=== PATIENT | male | born 1935 | race American Indian/Alaskan Native ===

== ENCOUNTER 2018-10-16 14:34 | Emergency (ER) | payer OTHER ==
[~2018-10-16] VITALS: Ht 167.6 cm; Wt 79.4 kg
[2018-10-16 15:07] LABS: BASOPHILS ABSOLUTE AUTO 0.04 K/mm3 (0.00-0.23); BASOPHILS PERCENT AUTO 1 % (0-2); EOSINOPHILS ABSOLUTE AUTO 0.52 K/mm3 (0.00-0.68); EOSINOPHILS PERCENT AUTO 6 % (0-6); Hemoglobin 9.9 g/dL (13.5-17.5); IMMATURE GRAN ABSOLUTE AUTO 0.04 K/mm3 (0.00-0.10); IMMATURE GRAN PERCENT AUTO 1 % (0-1); LYMPHOCYTES ABSOLUTE AUTO 2.48 K/mm3 (0.84-5.20); LYMPHOCYTES PERCENT AUTO 31 % (21-46); MONOCYTES ABSOLUTE AUTO 0.75 K/mm3 (0.16-1.47); MONOCYTES PERCENT AUTO 9 % (4-13); Mean Corpuscular HGB 33.4 pg (26.0-34.0); Mean Corpuscular HGB Conc 34.1 g/dL (31.5-36.5); Mean Corpuscular Volume 98 fL (80-100); Mean Platelet Volume 10.3 fL (9.1-12.4); NEUTROPHILS ABSOLUTE AUTO 4.28 K/mm3 (1.96-9.15); NEUTROPHILS PERCENT AUTO 53 % (41-73); Platelet Count 194 K/mm3 (150-400); RDW Coefficient Variation 12.3 % (11.7-14.2); RDW Standard Deviation 43.7 fL (35.1-46.3); Red Blood Cell Count 2.96 M/mm3 (4.30-5.90); White Blood Cell Count 8.11 K/mm3 (4.00-11.30)
[2018-10-16 15:26] LABS: Alanine Aminotransfer (ALT/SGP 28 U/L (12-78); Albumin, Blood 3.4 g/dL (3.4-5.0); Albumin/Globulin Ratio 1.1 (0.8-1.8); Alk Phos 101 U/L (50-136); Anion Gap 9 mmol/L (6-16); Aspartate Aminotrans (AST/SGOT 17 U/L (12-37); Bilirubin, Total 0.3 mg/dL (0.1-1.0); Blood Urea Nitrogen 39 mg/dL (8-24); Bun/Creatinine Ratio 21.4 (12.0-20.0); CO2, Blood 22 mmol/L (21-32); Calcium, Blood 8.7 mg/dL (8.5-10.1); Chloride, Blood 111 mmol/L (98-108); Creatinine, Blood 1.82 mg/dL (0.60-1.20); Glomerular Filtration Rate 38 (60-); Glucose, Blood 96 mg/dL (70-99); Potassium, Blood 4.6 mmol/L (3.5-5.5); Sodium, Blood 142 mmol/L (136-145); Total Protein, Blood 6.4 g/dL (6.4-8.2); Troponin I <0.015 ng/mL (0.000-0.040)
[2018-10-16 16:55] LABS: Source, Urine Clean Catch
[2018-10-16 16:58] LABS: Bilirubin, Urine Neg (Neg); Blood, Urine Neg (Neg); Glucose Qualitative, Urine Neg (Neg); Ketones, Urine Neg (Neg); Leukocyte Esterase, Urine Neg (Neg); Nitrite, Urine Neg (Neg); Protein, Urine Neg (Neg); Specific Gravity, Urine 1.015 (1.003-1.022); Urobilinogen, Urine NORM (Normal)
[2018-10-16 17:05] LABS: Appearance, Urine Clear (Clear); Color, Urine Yellow (P-Yellow)
== END 2018-10-16 18:00 | disposition home or self-care (01) ==
LOC: ER 14:34
PROVIDERS: Emergency Medicine
DX: R53.1 Weakness (principal); D64.9 Anemia, unspecified; N28.9 Disorder of kidney and ureter, unspecified; F17.210 Nicotine dependence, cigarettes, uncomplicated
CPT/HCPCS: 80053; 81003; 84443; 84484; 85025; 93005; 93010; 96360; 99284-25; J7120

== ENCOUNTER 2020-04-10 23:10 | Observation (INO) | payer OTHER ==
[~2020-04-10] VITALS: Ht 167.6 cm; Wt 77.4 kg
[2020-04-10 23:42] LABS: BASOPHILS ABSOLUTE AUTO 0.04 K/mm3 (0.00-0.23); BASOPHILS PERCENT AUTO 0 % (0-2); EOSINOPHILS ABSOLUTE AUTO 0.37 K/mm3 (0.00-0.68); EOSINOPHILS PERCENT AUTO 4 % (0-6); Hematocrit 33.8 % (37.0-53.0); Hemoglobin 11.7 g/dL (13.5-17.5); IMMATURE GRAN ABSOLUTE AUTO 0.04 K/mm3 (0.00-0.10); IMMATURE GRAN PERCENT AUTO 0 % (0-1); LYMPHOCYTES ABSOLUTE AUTO 2.24 K/mm3 (0.84-5.20); LYMPHOCYTES PERCENT AUTO 21 % (21-46); MONOCYTES ABSOLUTE AUTO 0.84 K/mm3 (0.16-1.47); MONOCYTES PERCENT AUTO 8 % (4-13); Mean Corpuscular HGB 33.3 pg (26.0-34.0); Mean Corpuscular HGB Conc 34.6 g/dL (31.5-36.5); Mean Corpuscular Volume 96 fL (80-100); Mean Platelet Volume 9.7 fL (9.1-12.4); NEUTROPHILS ABSOLUTE AUTO 7.02 K/mm3 (1.96-9.15); NEUTROPHILS PERCENT AUTO 67 % (41-73); Platelet Count 217 K/mm3 (150-400); RDW Coefficient Variation 12.1 % (11.7-14.2); RDW Standard Deviation 42.2 fL (35.1-46.3); Red Blood Cell Count 3.51 M/mm3 (4.30-5.90); White Blood Cell Count 10.55 K/mm3 (4.00-11.30)
[2020-04-10 23:58] LABS: International Normalized Ratio 0.94; Prothrombin Time Results 10.1 Sec (9.7-11.5)
[2020-04-11 00:02] LABS: Troponin I <0.015 ng/mL (0.000-0.040)
[2020-04-11 00:03] LABS: Alanine Aminotransfer (ALT/SGP 32 U/L (12-78); Albumin, Blood 3.4 g/dL (3.4-5.0); Alk Phos 160 U/L (50-136); Anion Gap 7 mmol/L (6-16); Aspartate Aminotrans (AST/SGOT 26 U/L (12-37); Bilirubin, Total 0.2 mg/dL (0.1-1.0); Blood Urea Nitrogen 23 mg/dL (8-24); CO2, Blood 26 mmol/L (21-32); Calcium, Blood 8.7 mg/dL (8.5-10.1); Chloride, Blood 109 mmol/L (98-108); Creatinine, Blood 1.35 mg/dL (0.60-1.20); Globulin, Blood 3.4 g/dL (2.2-4.0); Glomerular Filtration Rate 54 (60-); Glucose, Blood 143 mg/dL (70-99); Potassium, Blood 3.9 mmol/L (3.5-5.5); Sodium, Blood 142 mmol/L (136-145); Total Protein, Blood 6.8 g/dL (6.4-8.2)
[2020-04-11 03:27] LABS: Influenza A, PCR NEGATIVE (NEGATIVE); Influenza B, PCR NEGATIVE (NEGATIVE); Resp Syncytial Virus, PCR NEGATIVE (NEGATIVE); SARS-Cov-2 (COVID-19) PCR, MMC NEGATIVE (NEGATIVE)
[2020-04-11 05:47] LABS: BASOPHILS ABSOLUTE AUTO 0.03 K/mm3 (0.00-0.23); BASOPHILS PERCENT AUTO 0 % (0-2); EOSINOPHILS ABSOLUTE AUTO 0.04 K/mm3 (0.00-0.68); EOSINOPHILS PERCENT AUTO 0 % (0-6); Hematocrit 32.3 % (37.0-53.0); Hemoglobin 11.3 g/dL (13.5-17.5); IMMATURE GRAN ABSOLUTE AUTO 0.05 K/mm3 (0.00-0.10); IMMATURE GRAN PERCENT AUTO 0 % (0-1); LYMPHOCYTES ABSOLUTE AUTO 1.64 K/mm3 (0.84-5.20); LYMPHOCYTES PERCENT AUTO 13 % (21-46); MONOCYTES ABSOLUTE AUTO 0.82 K/mm3 (0.16-1.47); MONOCYTES PERCENT AUTO 7 % (4-13); Mean Corpuscular HGB 33.1 pg (26.0-34.0); Mean Corpuscular Volume 95 fL (80-100); Mean Platelet Volume 9.7 fL (9.1-12.4); NEUTROPHILS ABSOLUTE AUTO 9.83 K/mm3 (1.96-9.15); NEUTROPHILS PERCENT AUTO 79 % (41-73); Platelet Count 209 K/mm3 (150-400); RDW Coefficient Variation 11.9 % (11.7-14.2); RDW Standard Deviation 41.4 fL (35.1-46.3); Red Blood Cell Count 3.41 M/mm3 (4.30-5.90); White Blood Cell Count 12.41 K/mm3 (4.00-11.30)
[2020-04-11 06:24] LABS: Alanine Aminotransfer (ALT/SGP 34 U/L (12-78); Albumin, Blood 3.2 g/dL (3.4-5.0); Albumin/Globulin Ratio 0.9 (0.8-1.8); Alk Phos 151 U/L (50-136); Anion Gap 6 mmol/L (6-16); Aspartate Aminotrans (AST/SGOT 22 U/L (12-37); Bilirubin, Total 0.3 mg/dL (0.1-1.0); Blood Urea Nitrogen 23 mg/dL (8-24); CO2, Blood 26 mmol/L (21-32); Calcium, Blood 8.6 mg/dL (8.5-10.1); Chloride, Blood 109 mmol/L (98-108); Creatinine, Blood 1.21 mg/dL (0.60-1.20); Globulin, Blood 3.4 g/dL (2.2-4.0); Glomerular Filtration Rate >60 (60-); Glucose, Blood 125 mg/dL (70-99); Potassium, Blood 3.9 mmol/L (3.5-5.5); Sodium, Blood 141 mmol/L (136-145); Total Protein, Blood 6.6 g/dL (6.4-8.2)
--- NOTE | 2020-04-11 06:37 | NUR ---
SHIFT SUMMARY: PT IS ALERT AND ORIENTED. PT IS CALM AND COOPERATIVE WITH CARE. PT CALLS APPROPRIATELY. PT USING THE URINAL IN BED INDEPENDENTLY. PT REPORTS R. SHOULDER PAIN, MEDICATING PER EMAR. PT DENIES NAUSEA, VOMITING, AND SOB. FLUIDS RUNNING ORDERED. CONSULT CALLED TO ANSWERING SERVICE. BED IN LOW POSITION, CALL LIGHT WITHIN REACH. WILL CONTINUE TO MONITOR.
--- NOTE | 2020-04-11 09:44 | NUR ---
PT FROM MEDICAL FLOOR TO PACU FOR PREOP. GIVEN 50MCG FENTANYL, JUST PRIOR TO ARRIVAL BY MEDICAL RN ALLI. PT IS SLEEPY BUT ANSWERS QUESTIONS APPROPRIATELY. IV IN LT WRIST FLUSHES WELL.
--- NOTE | 2020-04-11 10:01 | NUR ---
BLOOD CONSENT COMPLETED.
[2020-04-11] MEDS ORDERED: BUPR75 PO (14:11)
[2020-04-11] MEDS ORDERED: SERT100 PO (14:12)
[2020-04-11] MEDS ORDERED: METF500 PO (14:12)
[2020-04-11] MEDS ORDERED: ATOR40TA PO (14:13)
[2020-04-11] MEDS ORDERED: AF130 GM TOP (14:13)
[2020-04-11] MEDS ORDERED: CORTISONE60 GM TOP (14:14)
[2020-04-11] MEDS ORDERED: LISI5 PO (14:14)
--- NOTE | 2020-04-11 17:32 | NUR ---
PT IS A/OX3, PLEASANT AND COOPERATIVE, THE PT APPEARS TO BE BREATHING EASILY ON RA AT THIS TIME, THE PT WAS MEDICATED FOR PAIN THIS AM, THEN WAS TAKEN TO THE OR FOR A CLOSED REDUCTION, THE PT SO FAR DENIED ANY PAIN SINCE THR REDUCTION, PTS ARM IS IN AN IMOBILIZER, THE PT HES BEEN DROWSY, AWAKENS EASILY SINCE RETURNING FROM THE OR, THE PHYSICAL THERAPIST DID NOT WORK WITH THE PT TODAY DUE TO THE DROWSINESS, PT IS A MINIMAL ASSIST UP TO THE BATHROOM, CALL LIGHT IN REACH, WILL CONTINUE TO MONITOR AND ASSESS FOR CHANGES
--- NOTE | 2020-04-12 03:06 | NUR ---
Patient slept well after being medicated first with one Morley and then 50mcg Fentanyl for unrelenting shoulder and arm pain. Patient was educated about the importance of not waiting until pain is severe, as it is then very hard to control. After that, patient needed one more oral dose early in the morning, and was quite comfortable to sleep. Right arm remained in splint overnight. Patient hoping to go home today.
--- NOTE | 2020-04-12 17:48 | NUR ---
PT IS A/O X3 PLEASANT AND COOPERATIVE, PT IS UP WITH MIONIMAL ASSIST TO THE BATHROOM AND TO THE SIDE OF THE BED, THE PTS ARM HAS REMAINED IN THE IMONBULIZER T/O THE DAY, THE PT WAS MEDICATED FOR PAIN WITH NORCO T/O THE DAY, DR. GUARDADO CAME IN AND CONSULTED WITH THE PT, PER MD PLAN IS TO DC PT HOME TOMMAROW AFTER S/S CONSULT FOR SAFE DC, CALL LIGHT IN REACH, WILL CONTINUE TO MONITOR AND ASSESS FOR CHANGES
--- NOTE | 2020-04-13 19:39 | NUR ---
Pt AA&Ox4. Compulsive and does not use call light appropriately. Pleasant and coperative otherwise.During lunch he took off wedge sling, PT assisted to reapply, instucted to leave in place. Stand by assist to BR. Pain well controlled. No further issues noted.
--- NOTE | 2020-04-14 06:01 | NUR ---
SHIFT SUMMARY AOX4 @BEGINNING OF SHIFT. THE NIGHT PROGRESSED PT AOX2- UNAWARE PLACE OR SITUATION. STATES "I HAVE NO CLUE WHATS GOING ON OR WHERE I AM". IMPULSIVE, SET BED ALARM OFF FREQUENTLY DURING MIDDLE OF NIGHT, STATING HE WAS COMING OUT IN [place] TO SEE WHAT EVERYONE WAS DOING IN HIS HOUSE. EASILY REDIRECTED, REORIENTED HOWEVER PT FORGETS EASILY & NEEDS FREQUENT REMINDERS TO STAY IN BED. STUTTERS c SPEECH @TIMES. PT REMOVED/REPLACED R ARM SLING MULTIPLE TIMES T/O NIGHT, ENCOURAGED PT TO KEEP IN PLACE. VSS. TELE NSR @77. REPORTS 5-10/23 PAIN IN R SHOULDER, MEDICATED 2X c NORCO PER ORDERS. PT DID NOT FALL ASLEEP UNTIL ROUGHLY 0400 THIS AM, VERY RESTLESS. REPORTED NAUSEA THIS AM, MEDICATED 1X c ZOFRAN & NO FURTHER NAUSEA REPORTED. AWAITING SAFE DC PLANS. CALL LIGHT & BED ALARM IN PLACE FOR SAFETY.
--- NOTE | 2020-04-14 13:19 | NUR ---
Met Pt. in bed resting and he is doing much better encouraged pt. and offered prayers.
--- NOTE | 2020-04-14 19:38 | NUR ---
CLIENT AWAKE AND ALERT. SOME INTERMITTED CONFUSION. DOES NOT CALL APPROPRITAELY. BED AND CHAIR ALEARMS SET. PAIN WELL CONTROLLED. POOR APPITITE FOR BREAKFAST/LUNCH. FINISHED 100% OF DINNER. 1 ASSIST. NO DC PLAN IN PLACE.
--- NOTE | 2020-04-14 22:37 | NUR ---
PT with recent loss of balance ongoing who lives in apartment at [facility] fell & dislocated rt shoulder which had to be reduced in OR. He is . lives alone. He says no BM x 1 week & he uses laxatives when he gets constipated. Bowel care order set & over the counter iron as per his home dose obtained from [employer] call Keri Estes. Weak unsteadt up with 1 assist. Balance poor.
--- NOTE | 2020-04-15 04:38 | NUR ---
PT CO chronic constipation & laxative use baseline for constipation. On iron TID for anemia. Milk of mag given at HS. Has routine bowel care ordered now. DC plannig for safe dc SP fall with rt shoulder dislocation s/p closed reduction 04/11/20 in OR. Medicated with tylenol 325 mg tab for rt shoulder pain, RT UE sling intact. . PT lives alone at [facility].
[2020-04-15] MEDS ORDERED: Acetaminophen325 M1 PO (14:05)
[2020-04-15] MEDS ORDERED: FERSU300 PO (14:05)
--- NOTE | 2020-04-15 16:31 | NUR ---
Client AA&Ox3. pleasant and cooperative. Pain well controlled. BM today. Client denied [facility]. He wished to be DC home with HH. Discharge meds and paperwork reviewed and signed. Pt had no further questions ot concerns
== END 2020-04-15 15:24 | disposition home health service (06) ==
LOC: ER 23:10 → MEDS 23:11 → ER 04-11 02:40 → MEDS 04-11 03:13 → ER 04-11 23:11 → MEDS 04-15 15:24
PROVIDERS: Emergency Medicine; Orthopaedic Surgery; ADMIT Internal Medicine
PROC: 0RSJXZZ Reposition Right Shoulder Joint, External Approach (ICD-10-PCS; principal; 2020-04-11 12:00)
DX: S43.014A Anterior dislocation of right humerus, initial encounter (principal); S43.034A Inferior dislocation of right humerus, initial encounter; W18.30XA Fall on same level, unspecified, initial encounter; I10 Essential (primary) hypertension; E11.9 Type 2 diabetes mellitus without complications; J44.9 Chronic obstructive pulmonary disease, unspecified; Z86.73 Personal history of transient ischemic attack (TIA), and cerebral infarction without residual deficits; Z20.822 Contact with and (suspected) exposure to COVID-19
CPT/HCPCS: 0241U; 23655; 36415; 70450; 71045; 72125; 73030; 80053; 82947; 84484; 85025; 85610; 93005; 93010; 96372; 96374; 96375; 97110; 97116; 97162; 97166; 97530; 97535; 97535-CO; 99285-25; A9270; G0378; J0360; J1650; J2405; J2704; J3010; J7030; J7120

== ENCOUNTER 2020-05-22 17:20 | Emergency (ER) | payer OTHER ==
[~2020-05-22] VITALS: Ht 167.6 cm; Wt 72.6 kg
[~2020-05-22 17:20] MED LIST: AF130 GM TOP; ATOR40TA PO; Acetaminophen325 M1 PO; BUPR75 PO; CORTISONE60 GM TOP; FERSU300 PO; LISI5 PO; METF500 PO; SERT100 PO
[2020-05-22] MEDS ORDERED: ASPI81CH PO (17:47)
[2020-05-22 18:25] LABS: BASOPHILS ABSOLUTE AUTO 0.02 K/mm3 (0.00-0.23); BASOPHILS PERCENT AUTO 0 % (0-2); EOSINOPHILS ABSOLUTE AUTO 0.45 K/mm3 (0.00-0.68); EOSINOPHILS PERCENT AUTO 5 % (0-6); Hematocrit 32.2 % (37.0-53.0); Hemoglobin 10.9 g/dL (13.5-17.5); IMMATURE GRAN ABSOLUTE AUTO 0.04 K/mm3 (0.00-0.10); IMMATURE GRAN PERCENT AUTO 1 % (0-1); LYMPHOCYTES ABSOLUTE AUTO 1.92 K/mm3 (0.84-5.20); LYMPHOCYTES PERCENT AUTO 22 % (21-46); MONOCYTES ABSOLUTE AUTO 0.66 K/mm3 (0.16-1.47); MONOCYTES PERCENT AUTO 8 % (4-13); Mean Corpuscular HGB 33.1 pg (26.0-34.0); Mean Corpuscular HGB Conc 33.9 g/dL (31.5-36.5); Mean Corpuscular Volume 98 fL (80-100); Mean Platelet Volume 10.4 fL (9.1-12.4); NEUTROPHILS PERCENT AUTO 65 % (41-73); Platelet Count 191 K/mm3 (150-400); RDW Coefficient Variation 12.2 % (11.7-14.2); RDW Standard Deviation 44.5 fL (35.1-46.3); Red Blood Cell Count 3.29 M/mm3 (4.30-5.90); White Blood Cell Count 8.79 K/mm3 (4.00-11.30)
[2020-05-22 18:28] LABS: Anion Gap 4 mmol/L (6-16); Blood Urea Nitrogen 30 mg/dL (8-24); Bun/Creatinine Ratio 26.3 (12.0-20.0); CO2, Blood 23 mmol/L (21-32); Calcium, Blood 8.5 mg/dL (8.5-10.1); Chloride, Blood 114 mmol/L (98-108); Creatinine, Blood 1.14 mg/dL (0.60-1.20); Glomerular Filtration Rate >60 (60-); Glucose, Blood 84 mg/dL (70-99); Potassium, Blood 4.2 mmol/L (3.5-5.5); Sodium, Blood 141 mmol/L (136-145)
== END 2020-05-22 19:17 | disposition home or self-care (01) ==
LOC: ER 17:20
PROVIDERS: Emergency Medicine
DX: R00.1 Bradycardia, unspecified (principal); J44.9 Chronic obstructive pulmonary disease, unspecified; I10 Essential (primary) hypertension; F17.200 Nicotine dependence, unspecified, uncomplicated; Z79.84 Long term (current) use of oral hypoglycemic drugs; Z79.82 Long term (current) use of aspirin; Z79.899 Other long term (current) drug therapy
CPT/HCPCS: 36415; 80048; 83735; 85025; 93005; 93010; 99284-25

== ENCOUNTER 2020-08-06 16:27 | Emergency (ER) | payer OTHER ==
[~2020-08-06] VITALS: Ht 167.6 cm; Wt 73.5 kg
[~2020-08-06 16:27] MED LIST changes: +ASPI81CH PO
[2020-08-06 17:18] LABS: Alanine Aminotransfer (ALT/SGP 43 U/L (12-78); Albumin, Blood 3.5 g/dL (3.4-5.0); Albumin/Globulin Ratio 0.9 (0.8-1.8); Alk Phos 128 U/L (50-136); Anion Gap 9 mmol/L (6-16); Aspartate Aminotrans (AST/SGOT 35 U/L (12-37); Bilirubin, Total 0.3 mg/dL (0.1-1.0); Blood Urea Nitrogen 21 mg/dL (8-24); Bun/Creatinine Ratio 18.1 (12.0-20.0); CO2, Blood 21 mmol/L (21-32); Calcium, Blood 8.9 mg/dL (8.5-10.1); Chloride, Blood 110 mmol/L (98-108); Creatinine, Blood 1.16 mg/dL (0.60-1.20); Free Thyroxine 0.65 ng/dL (0.70-1.60); Globulin, Blood 3.8 g/dL (2.2-4.0); Glomerular Filtration Rate >60 (60-); Glucose, Blood 82 mg/dL (70-99); Phosphorus, Blood 2.7 mg/dL (2.5-4.9); Potassium, Blood 4.9 mmol/L (3.5-5.5); Sodium, Blood 140 mmol/L (136-145); Total Protein, Blood 7.3 g/dL (6.4-8.2); Troponin I <0.015 ng/mL (0.000-0.040)
[2020-08-06] MEDS ORDERED: LISI5 (17:19)
[2020-08-06 17:44] LABS: BASOPHILS ABSOLUTE AUTO 0.04 K/mm3 (0.00-0.23); BASOPHILS PERCENT AUTO 1 % (0-2); EOSINOPHILS ABSOLUTE AUTO 0.53 K/mm3 (0.00-0.68); EOSINOPHILS PERCENT AUTO 6 % (0-6); Hematocrit 32.4 % (37.0-53.0); Hemoglobin 11.3 g/dL (13.5-17.5); IMMATURE GRAN ABSOLUTE AUTO 0.05 K/mm3 (0.00-0.10); IMMATURE GRAN PERCENT AUTO 1 % (0-1); LYMPHOCYTES PERCENT AUTO 23 % (21-46); MONOCYTES ABSOLUTE AUTO 0.74 K/mm3 (0.16-1.47); MONOCYTES PERCENT AUTO 9 % (4-13); Mean Corpuscular HGB 33.9 pg (26.0-34.0); Mean Corpuscular HGB Conc 34.9 g/dL (31.5-36.5); Mean Corpuscular Volume 97 fL (80-100); NEUTROPHILS ABSOLUTE AUTO 5.02 K/mm3 (1.96-9.15); NEUTROPHILS PERCENT AUTO 61 % (41-73); RDW Coefficient Variation 12.2 % (11.7-14.2); RDW Standard Deviation 43.5 fL (35.1-46.3); Red Blood Cell Count 3.33 M/mm3 (4.30-5.90); White Blood Cell Count 8.28 K/mm3 (4.00-11.30)
[2020-08-06 17:50] LABS: Mean Platelet Volume 10.8 fL (9.1-12.4); Platelet Count 176 K/mm3 (150-400)
[2020-08-06 21:44] LABS: Source, Urine Clean Catch
[2020-08-06 21:45] LABS: Bilirubin, Urine Neg (Neg); Blood, Urine Neg (Neg); Glucose Qualitative, Urine Neg (Neg); Ketones, Urine Neg (Neg); Leukocyte Esterase, Urine Neg (Neg); Nitrite, Urine Neg (Neg); Protein, Urine Neg (Neg); Specific Gravity, Urine 1.015 (1.003-1.022); Urobilinogen, Urine NORM (Normal)
[2020-08-06 21:49] LABS: Appearance, Urine Clear (Clear); Color, Urine Yellow (P-Yellow)
== END 2020-08-06 23:53 | disposition home or self-care (01) ==
LOC: ER 16:27
PROVIDERS: Student in an Organized Health Care Education/Training Program
DX: R00.1 Bradycardia, unspecified (principal); R53.1 Weakness; I10 Essential (primary) hypertension; E11.9 Type 2 diabetes mellitus without complications; F17.210 Nicotine dependence, cigarettes, uncomplicated; Z79.899 Other long term (current) drug therapy; Z79.84 Long term (current) use of oral hypoglycemic drugs
CPT/HCPCS: 71045; 80053; 81003; 83735; 84100; 84439; 84443; 84484; 85025; 93005; 93010; 99284-25

== ENCOUNTER 2020-10-21 07:19 | Day surgery (SDC) | payer OTHER ==
[~2020-10-21] VITALS: Ht 167.6 cm; Wt 73.5 kg
[~2020-10-21 07:19] MED LIST changes: +FERROUS SULFAT325 M3 PO; +SULTRIDS PO; +UBID10 PO
== END 2020-10-21 08:57 | disposition home or self-care (01) ==
LOC: MHTC 07:19
DX: Z01.812 Encounter for preprocedural laboratory examination (principal); I49.5 Sick sinus syndrome; J44.9 Chronic obstructive pulmonary disease, unspecified; I10 Essential (primary) hypertension; E11.9 Type 2 diabetes mellitus without complications; Z20.822 Contact with and (suspected) exposure to COVID-19
CPT/HCPCS: 82947; 93005; 93010; J0690; J1580; J1644; J7040

== ENCOUNTER 2020-11-25 08:22 | Day surgery (SDC) | payer OTHER ==
[~2020-11-25] VITALS: Ht 167.6 cm; Wt 73.0 kg
[2020-11-25 09:20] LABS: International Normalized Ratio 0.98; Prothrombin Time Results 10.3 Sec (9.7-11.5)
[2020-11-25 09:35] LABS: Bun/Creatinine Ratio 20.6 (12.0-20.0); Creatinine, Blood 1.36 mg/dL (0.60-1.20); Potassium, Blood 4.4 mmol/L (3.5-5.5)
[2020-11-25 10:08] LABS: SARS-Cov-2 (COVID-19) PCR, MMC NEGATIVE (NEGATIVE)
--- NOTE | 2020-11-25 12:50 | NUR ---
TO X-RAY WITH X-RAY TECH
--- NOTE | 2020-11-25 13:04 | NUR ---
PT RETURNED FROM X-RAY
--- NOTE | 2020-11-25 13:20 | NUR ---
assumed patient care . left pacer site dressing with small amount of red blood on it. pacer site is a little puffy. ice oack in place. 2lb weight placed. discussed post pacer implant precautions after discharge.
--- NOTE | 2020-11-25 14:52 | NUR ---
DR IN TO CHECK STATUS OF PT WOUND SITE AND DRESSING. HAS HAD ICE PACK AND 2 POUND WEIGHT ON SURGICAL INCISION SITE. DRESSING WITH MORE OOZING. DR WILL COME AND CHECK AGAIN PRIOR TO DISCHARGE.
--- NOTE | 2020-11-25 15:44 | NUR ---
IN TO SEE PT, SURGICAL SITE CHECKED. PT OKAYED TO GO HOME. DRESSING INTACT WITH NO CHANGES NOTED FAR MORE BLEEDING. DISCHARGE GONE OVER WITH PT, VERBALIZES UNDERSTANDING. ASSISTANCE NEEDED TO GET DRESSED. SALINE LOCK REMOVED AND LEFT ARM PLACED IN SLING. RE-ENFORCED LIMITED USE OF LEFT ARM AND GOING ABOVE SHOULDER LEVEL. PT VERBALIZES UNDERSTANDING. PT TO PRIVATE VEHICLE PER W/C WITH ONE STAFF.
== END 2020-11-25 15:55 | disposition home or self-care (01) ==
LOC: MHTC 08:22
PROVIDERS: Internal Medicine Cardiovascular Disease
DX: I49.5 Sick sinus syndrome (principal); I10 Essential (primary) hypertension; J44.9 Chronic obstructive pulmonary disease, unspecified; I11.9 Hypertensive heart disease without heart failure; E78.5 Hyperlipidemia, unspecified; Z79.84 Long term (current) use of oral hypoglycemic drugs
CPT/HCPCS: 33208; 71046; 80048; 85610; 93005; 93010; 99152; 99153; A9270; C1785; C1898; J0690; J1580; J2250; J3010; J7030; J7040; Q9967; U0004

== ENCOUNTER 2021-02-04 06:43 | Day surgery (SDC) | payer OTHER ==
[~2021-02-04] VITALS: Ht 167.6 cm; Wt 74.0 kg
[2021-02-04] MEDS ORDERED: C COMPLEX1000 M1 PO (07:04)
--- NOTE | 2021-02-04 17:42 | NUR ---
SHIFT SUMMARY; ADMIT FROM [facility] LEAD ADJUSTMENT. TEGADERM IN PLACE OVER SITE, CLEAN AND DRY, NO SWELLING OR BLEEDING. LEFT ARM SLING IN PLACE. A/A/OX4, REPOSITIONS SELF IN BED NEEDED. VSS, PLEASANT AND COOPERATIVE WITH CARE. WILL CONTINUE TO MONITOR AND TREAT UNTIL CHANGE OF SHIFT.
[2021-02-05 04:25] LABS: Hematocrit 32.6 % (37.0-53.0); Mean Corpuscular HGB Conc 33.7 g/dL (31.5-36.5); Mean Corpuscular Volume 101 fL (80-100); Mean Platelet Volume 10.3 fL (9.1-12.4); Platelet Count 189 K/mm3 (150-400); RDW Coefficient Variation 11.8 % (11.7-14.2); RDW Standard Deviation 42.9 fL (35.1-46.3); Red Blood Cell Count 3.24 M/mm3 (4.30-5.90); White Blood Cell Count 9.13 K/mm3 (4.00-11.30)
[2021-02-05 06:10] LABS: Bun/Creatinine Ratio 18.4 (12.0-20.0); Calcium, Blood 9.1 mg/dL (8.5-10.1); Creatinine, Blood 1.47 mg/dL (0.60-1.20); Potassium, Blood 4.5 mmol/L (3.5-5.5)
== END 2021-02-05 14:03 | disposition home or self-care (01) ==
LOC: MHTC 06:43 → PCU 08:39 → MHTC 02-05 14:03
PROVIDERS: Internal Medicine Cardiovascular Disease
DX: T82.120A Displacement of cardiac electrode, initial encounter (principal); Y71.8 Miscellaneous cardiovascular devices associated with adverse incidents, not elsewhere classified; I49.5 Sick sinus syndrome; I10 Essential (primary) hypertension; E11.9 Type 2 diabetes mellitus without complications; J44.9 Chronic obstructive pulmonary disease, unspecified; E78.5 Hyperlipidemia, unspecified; Z79.84 Long term (current) use of oral hypoglycemic drugs; Z88.5 Allergy status to narcotic agent; Z91.048 Other nonmedicinal substance allergy status
CPT/HCPCS: 33215; 71046; 80048; 85027; 99152; 99153; A9270; C1781; J0690; J1580; J1644; J2250; J3010; J7030; J7040

== ENCOUNTER 2022-08-26 12:57 | Emergency (ER) | payer OTHER ==
[~2022-08-26] VITALS: Ht 167.6 cm; Wt 72.6 kg
[~2022-08-26 12:57] MED LIST changes: +C COMPLEX1000 M1 PO
[2022-08-26 13:06] VITALS: BP 148/78
== END 2022-08-26 14:04 | disposition home or self-care (01) ==
LOC: ER 12:57
DX: S00.03XA Contusion of scalp, initial encounter (principal); W19.XXXA Unspecified fall, initial encounter; Y92.009 Unspecified place in unspecified non-institutional (private) residence as the place of occurrence of the external cause; Z88.5 Allergy status to narcotic agent; Z79.84 Long term (current) use of oral hypoglycemic drugs; Z79.899 Other long term (current) drug therapy; J44.9 Chronic obstructive pulmonary disease, unspecified; Z86.73 Personal history of transient ischemic attack (TIA), and cerebral infarction without residual deficits; E11.9 Type 2 diabetes mellitus without complications; I10 Essential (primary) hypertension; F17.210 Nicotine dependence, cigarettes, uncomplicated
CPT/HCPCS: 70450; 99284-25

== ENCOUNTER 2022-12-09 16:06 | Emergency (ER) | payer OTHER ==
[~2022-12-09] VITALS: Ht 167.6 cm; Wt 68.0 kg
[2022-12-09] MEDS ORDERED: MELATONIN5 M1 (16:30)
[2022-12-09] MEDS ORDERED: DICLOFENAC SOD100 GM (16:30)
[2022-12-09 16:31] LABS: Source, Urine Clean Catch
[2022-12-09] MEDS ORDERED: NYSTRIT (16:31)
[2022-12-09] MEDS ORDERED: PRAHYD1AE (16:31)
[2022-12-09] MEDS ORDERED: SERT100 (16:32)
[2022-12-09] MEDS ORDERED: ALEVAZOL56.7 G1 (16:33)
[2022-12-09 16:36] LABS: BASOPHILS ABSOLUTE AUTO 0.03 K/mm3 (0.00-0.23); BASOPHILS PERCENT AUTO 0 % (0-2); EOSINOPHILS ABSOLUTE AUTO 0.43 K/mm3 (0.00-0.68); EOSINOPHILS PERCENT AUTO 5 % (0-6); Hematocrit 32.2 % (37.0-53.0); IMMATURE GRAN ABSOLUTE AUTO 0.04 K/mm3 (0.00-0.10); IMMATURE GRAN PERCENT AUTO 1 % (0-1); LYMPHOCYTES ABSOLUTE AUTO 1.55 K/mm3 (0.84-5.20); LYMPHOCYTES PERCENT AUTO 18 % (21-46); MONOCYTES ABSOLUTE AUTO 0.54 K/mm3 (0.16-1.47); MONOCYTES PERCENT AUTO 6 % (4-13); Mean Corpuscular HGB 34.1 pg (26.0-34.0); Mean Corpuscular HGB Conc 34.2 g/dL (31.5-36.5); Mean Corpuscular Volume 100 fL (80-100); Mean Platelet Volume 10.1 fL (9.1-12.4); NEUTROPHILS ABSOLUTE AUTO 5.99 K/mm3 (1.96-9.15); NEUTROPHILS PERCENT AUTO 70 % (41-73); Platelet Count 205 K/mm3 (150-400); RDW Coefficient Variation 12.5 % (11.7-14.2); RDW Standard Deviation 45.4 fL (35.1-46.3); Red Blood Cell Count 3.23 M/mm3 (4.30-5.90); White Blood Cell Count 8.58 K/mm3 (4.00-11.30)
[2022-12-09 16:37] LABS: Appearance, Urine Clear (Clear); Bilirubin, Urine Neg (Neg); Blood, Urine Neg (Neg); Color, Urine Yellow (P-Yellow); Glucose Qualitative, Urine Neg (Neg); Ketones, Urine Neg (Neg); Leukocyte Esterase, Urine Neg (Neg); Nitrite, Urine Neg (Neg); Protein, Urine Neg (Neg); Urobilinogen, Urine NORM (Normal)
[2022-12-09 17:09] LABS: Albumin, Blood 3.4 g/dL (3.4-5.0); Bilirubin, Total 0.3 mg/dL (0.1-1.0); Bun/Creatinine Ratio 23.1 (12.0-20.0); Calcium, Blood 8.8 mg/dL (8.5-10.1); Creatinine, Blood 1.21 mg/dL (0.60-1.20); Globulin, Blood 3.3 g/dL (2.2-4.0); Potassium, Blood 4.1 mmol/L (3.5-5.5); Total Protein, Blood 6.7 g/dL (6.4-8.2)
[2022-12-09 19:15] VITALS: BP 148/77
[2022-12-09 19:40] LABS: Calcium, Ionized (POC) 0.93 mmol/L (1.10-1.46); Chloride (POC) 97 mmol/L (98-108); Creatinine (POC) 13.6 mg/dL (0.8-1.3); Glucose (ISTAT POC) 187 mg/dL (70-99); Hemoglobin (POC) 11.9 g/dL (13.5-17.5); Sodium (POC) 134 mmol/L (135-148); Total CO2 (POC) 28 mmol/L (21-32)
== END 2022-12-09 19:58 | disposition home or self-care (01) ==
LOC: ER 16:06
PROVIDERS: Emergency Medicine
DX: S09.90XA Unspecified injury of head, initial encounter (principal); E87.8 Other disorders of electrolyte and fluid balance, not elsewhere classified; R29.6 Repeated falls; W18.09XA Striking against other object with subsequent fall, initial encounter; J44.9 Chronic obstructive pulmonary disease, unspecified; E11.9 Type 2 diabetes mellitus without complications; I10 Essential (primary) hypertension; Z86.73 Personal history of transient ischemic attack (TIA), and cerebral infarction without residual deficits; Z95.0 Presence of cardiac pacemaker; Z88.5 Allergy status to narcotic agent; Z79.899 Other long term (current) drug therapy
CPT/HCPCS: 70450; 80047; 80053; 81003; 85014; 85025; 99285-25

== ENCOUNTER 2024-04-22 14:05 | Emergency (ER) | payer OTHER ==
[~2024-04-22] VITALS: Ht 167.6 cm; Wt 68.0 kg
[~2024-04-22 14:05] MED LIST changes: +ALEVAZOL56.7 G1; +DICLOFENAC SOD100 GM; +MELATONIN5 M1; +NYSTRIT; +PRAHYD1AE; +SERT100
[2024-04-22 14:55] LABS: BASOPHILS ABSOLUTE AUTO 0.05 K/mm3 (0.00-0.23); BASOPHILS PERCENT AUTO 1 % (0-2); EOSINOPHILS PERCENT AUTO 6 % (0-6); Hematocrit 32.3 % (37.0-53.0); Hemoglobin 11.4 g/dL (13.5-17.5); IMMATURE GRAN ABSOLUTE AUTO 0.01 K/mm3 (0.00-0.10); IMMATURE GRAN PERCENT AUTO 0 % (0-1); LYMPHOCYTES ABSOLUTE AUTO 1.35 K/mm3 (0.84-5.20); LYMPHOCYTES PERCENT AUTO 20 % (21-46); MONOCYTES PERCENT AUTO 7 % (4-13); Mean Corpuscular HGB 34.2 pg (26.0-34.0); Mean Corpuscular HGB Conc 35.3 g/dL (31.5-36.5); Mean Corpuscular Volume 97 fL (80-100); Mean Platelet Volume 9.9 fL (9.1-12.4); NEUTROPHILS ABSOLUTE AUTO 4.52 K/mm3 (1.96-9.15); NEUTROPHILS PERCENT AUTO 66 % (41-73); Platelet Count 213 K/mm3 (150-400); RDW Coefficient Variation 12.4 % (11.7-14.2); Red Blood Cell Count 3.33 M/mm3 (4.30-5.90); White Blood Cell Count 6.83 K/mm3 (4.00-11.30)
[2024-04-22 15:07] LABS: Source, Urine Voided
[2024-04-22 15:14] LABS: Albumin, Blood 3.6 g/dL (3.4-5.0); Albumin/Globulin Ratio 1.2 (0.8-1.8); Bilirubin, Total 0.5 mg/dL (0.1-1.0); Creatinine, Blood 1.25 mg/dL (0.60-1.20); Globulin, Blood 3.1 g/dL (2.2-4.0); Potassium, Blood 4.3 mmol/L (3.5-5.5); Total Protein, Blood 6.7 g/dL (6.4-8.2)
[2024-04-22 15:19] LABS: Appearance, Urine Clear (Clear); Bilirubin, Urine Neg (Neg); Blood, Urine Neg (Neg); Color, Urine Yellow (P-Yellow); Glucose Qualitative, Urine Neg (Neg); Ketones, Urine Neg (Neg); Leukocyte Esterase, Urine Neg (Neg); Nitrite, Urine Neg (Neg); Protein, Urine 1+ (Neg); Urobilinogen, Urine NORM (Normal)
[2024-04-22 18:00] VITALS: BP 117/92
== END 2024-04-22 18:30 | disposition home or self-care (01) ==
LOC: ER 14:05
PROVIDERS: Emergency Medicine
DX: S09.90XA Unspecified injury of head, initial encounter (principal); S50.01XA Contusion of right elbow, initial encounter; S80.211A Abrasion, right knee, initial encounter; M25.552 Pain in left hip; W18.30XA Fall on same level, unspecified, initial encounter; I13.0 Hypertensive heart and chronic kidney disease with heart failure and stage 1 through stage 4 chronic kidney disease, or unspecified chronic kidney disease; I50.20 Unspecified systolic (congestive) heart failure; N18.9 Chronic kidney disease, unspecified; D63.1 Anemia in chronic kidney disease; E11.22 Type 2 diabetes mellitus with diabetic chronic kidney disease; G30.9 Alzheimer's disease, unspecified; F02.80 Dementia in other diseases classified elsewhere, unspecified severity, without behavioral disturbance, psychotic disturbance, mood disturbance, and anxiety; J44.9 Chronic obstructive pulmonary disease, unspecified; I48.91 Unspecified atrial fibrillation; F17.210 Nicotine dependence, cigarettes, uncomplicated; Z88.5 Allergy status to narcotic agent; Z79.899 Other long term (current) drug therapy
CPT/HCPCS: 70450; 73070; 73502; 80053; 85025; 93005; 93010; 99284-25

== ENCOUNTER → 2024-08-26 | Outpatient (CLI) | payer OTHER ==
[~2024-08-26] MED LIST changes: +DOCU100 PO; +LISI10 PO; +OXYC5 PO; +TRIA15CR3 TOP
[2024-08-26 18:01] LABS: BASOPHILS ABSOLUTE AUTO 0.02 K/mm3 (0.00-0.23); BASOPHILS PERCENT AUTO 0 % (0-2); EOSINOPHILS ABSOLUTE AUTO 0.25 K/mm3 (0.00-0.68); EOSINOPHILS PERCENT AUTO 4 % (0-6); Hematocrit 29.0 % (37.0-53.0); Hemoglobin 9.7 g/dL (13.5-17.5); IMMATURE GRAN ABSOLUTE AUTO 0.03 K/mm3 (0.00-0.10); IMMATURE GRAN PERCENT AUTO 0 % (0-1); LYMPHOCYTES ABSOLUTE AUTO 0.82 K/mm3 (0.84-5.20); LYMPHOCYTES PERCENT AUTO 12 % (21-46); MONOCYTES ABSOLUTE AUTO 0.50 K/mm3 (0.16-1.47); MONOCYTES PERCENT AUTO 7 % (4-13); Mean Corpuscular HGB Conc 33.4 g/dL (31.5-36.5); Mean Corpuscular Volume 99 fL (80-100); NEUTROPHILS ABSOLUTE AUTO 5.19 K/mm3 (1.96-9.15); NEUTROPHILS PERCENT AUTO 76 % (41-73); NRBC ABSOLUTE 0.00 K/mm3 (0.00-0.02); NRBC Auto 0.0 /100 WBC (0.0-0.2); Platelet Count 222 K/mm3 (150-400); RDW Coefficient Variation 11.9 % (11.7-14.2); RDW Standard Deviation 43.2 fL (35.1-46.3)
[2024-08-26 18:39] LABS: Bilirubin, Urine Neg (Neg); Color, Urine Yellow (P-Yellow); Glucose Qualitative, Urine Neg (Neg); Ketones, Urine Neg (Neg); Leukocyte Esterase, Urine Neg (Neg); Protein, Urine 1+ (Neg); Specific Gravity, Urine 1.020 (1.003-1.022); Urobilinogen, Urine NORM (Normal)
[2024-08-26 18:48] LABS: Alanine Aminotransfer (ALT/SGP 16.0 U/L (12-78); Albumin, Blood 2.7 g/dL (3.4-5.0); Albumin/Globulin Ratio 0.8 (0.8-1.8); Anion Gap 9.0 mmol/L (3-11); Aspartate Aminotrans (AST/SGOT 13.0 U/L (12-37); Bilirubin, Total 0.3 mg/dL (0.1-1.0); Blood Urea Nitrogen 49.0 mg/dL (8-24); CO2, Blood 26.0 mmol/L (21-32); Calcium, Blood 9.2 mg/dL (8.5-10.1); Chloride, Blood 107.0 mmol/L (98-108); Creatinine, Blood 1.17 mg/dL (0.60-1.20); Globulin, Blood 3.5 g/dL (2.2-4.0); Glucose, Blood 98.0 mg/dL (70-99); Potassium, Blood 4.4 mmol/L (3.5-5.5); Sodium, Blood 138.0 mmol/L (136-145); Total Protein, Blood 6.2 g/dL (6.4-8.2)
[2024-08-26 18:57] LABS: White Blood Cells, Urine 0-2 /hpf (0-5)
== END ==
LOC: LAB 17:48 → LAB SHORT 17:48
PROVIDERS: Nurse Practitioner Family
DX: G30.9 Alzheimer's disease, unspecified (principal); G20.A1 Parkinson's disease without dyskinesia, without mention of fluctuations; Z95.0 Presence of cardiac pacemaker
CPT/HCPCS: 80053; 81001; 85025